=== PATIENT | male | born 1960 | race Caucasian/White ===

== ENCOUNTER 2020-06-17 08:55 | Emergency (ER) | payer OTHER ==
[~2020-06-17] VITALS: Ht 193 cm; Wt 77.1 kg
--- NOTE | 2020-06-17 09:02 | NUR ---
PT AMBULATED TO ER BED 11 WITH WALKER
[2020-06-17 09:04] VITALS: BP 142/86
--- NOTE | 2020-06-17 09:13 | NUR ---
DR FERNÁNDEZ AT BEDSIDE AT THIS TIME
--- NOTE | 2020-06-17 09:26 | NUR ---
59/M BIB SELF. AMB WITH WALKER. C/O LEFFT HIP PAIN S/P FALL X YESTERDAY.MED HX: L HIP REPLACEMENT 3 YEARS AGO. PT DENIES ANY FEVER, CP, SOB, OR COUGH AT THIS TIME; PATIENT STATES PAIN OF 5/10 AT THIS TIME. PATIENT POSITIONED FOR COMFORT; HOB ELEVATED; BEDRAILS UP X1; BED DOWN. ER MD MADE AWARE OF PT STATUS.
--- NOTE | 2020-06-17 09:55 | NUR ---
Patient being evaluated by Dr. Georges at bedside.
[2020-06-17 10:26] VITALS: BP 142/86
== END 2020-06-17 10:26 | disposition home or self-care (01) ==
LOC: MED 08:55
DX: S72.115A Nondisplaced fracture of greater trochanter of left femur, initial encounter for closed fracture (principal); S70.02XA Contusion of left hip, initial encounter; I10 Essential (primary) hypertension; Z98.890 Other specified postprocedural states; W19.XXXA Unspecified fall, initial encounter; Y93.89 Activity, other specified; Y92.89 Other specified places as the place of occurrence of the external cause; Y99.8 Other external cause status
CPT/HCPCS: 73502; 99283

== ENCOUNTER 2022-11-25 09:34 | Emergency (ER) | payer OTHER ==
[~2022-11-25] VITALS: Ht 193 cm; Wt 78.0 kg
[2022-11-25 09:41] VITALS: BP 156/96
--- NOTE | 2022-11-25 09:50 | NUR ---
PT AMB TO BED 1.
[2022-11-25] MEDS ORDERED: VANCOMYCIN 1,000 MG in DEXTROSE 5% 250 ML IV ONE (10:40)
[2022-11-25] MEDS ORDERED: NACL 0.9% 1,000 ML IV ONE (10:40)
[2022-11-25] MEDS ORDERED: PIPERACILLIN/TAZOBACTAM 3.375 GM in DEXTROSE 5% 50 ML IV ONE (10:40)
--- NOTE | 2022-11-25 10:41 | NUR ---
Wound culture dropped off with lab.
[2022-11-25] MEDS ORDERED: PIPERACILLIN/TAZOBACTAM 3.375 GM VIAL IV ONE (10:53)
[2022-11-25] MEDS ORDERED: VANCOMYCIN 1,000 MG VIAL ONE (10:53)
[2022-11-25 11:47] LABS: BASOPHILS % (AUTO) 0.3 % (0.0-2.0); EOSINOPHILS # (AUTO) 0.1 K/uL (0-0.4); EOSINOPHILS % (AUTO) 1.4 % (0.0-4.0); HEMATOCRIT 43.7 % (36-52); HEMOGLOBIN 14.7 g/dL (12.0-18.0); LYMPHOCYTES % (AUTO) 13.8 % (20.5-51.1); MEAN CORPUSCULAR HEMOGLOBIN 31 pg (27-31); MEAN CORPUSCULAR HGB CONC 34 g/dL (33-37); MEAN CORPUSCULAR VOLUME 91.9 fL (80-94); MONOCYTES # (AUTO) 0.8 K/uL (0.8-1.0); MONOCYTES % (AUTO) 11.3 % (1.7-9.3); NEUTROPHILS # (AUTO) 5.2 K/uL (1.8-7.7); NEUTROPHILS % (AUTO) 73.2 % (42.2-75.2); PLATELET COUNT (AUTO) 225 K/uL (140-450); RED BLOOD CELL COUNT(AUTO) 4.75 MIL/uL (4.20-6.10); RED CELL DISTRIBUTION WIDTH 13.2 % (11.6-13.7); WHITE BLOOD COUNT (AUTO) 7.1 K/uL (4.8-10.8)
[2022-11-25 12:04] LABS: ANION GAP 14.8 (8-16); ASPARTATE AMINOTRANSFERASE 23 U/L (15-37); CHLORIDE 99 mmol/L (98-107); CREATININE 0.5 mg/dL (0.6-1.3); GFR ARICAN-AMERICAN 216 mL/min (>90); GLUCOSE 86 mg/dL (74-106); POTASSIUM 3.8 mmol/L (3.5-5.1); SODIUM SERUM 138 mmol/L (136-145); TOTAL BILIRUBIN 1.2 mg/dL (0.0-1.0); UREA NITROGEN, BLOOD 13 mg/dL (7-18)
[2022-11-25] MEDS ORDERED: SULF-59 PO (13:49)
[2022-11-25] MEDS ORDERED: CEPH-588 PO (13:49)
[2022-11-25 14:06] VITALS: BP 150/100
--- NOTE | 2022-11-25 14:06 | NUR ---
Patient discharged with v/s stable. Written and verbal after care instructions given and explained. Patient alert, oriented and verbalized understanding of instructions. Ambulatory with steady gait. All questions addressed prior to discharge. ID band removed. Patient advised to follow up with PMD. Rx of keflex, bactrim ds (sent) given. Patient educated on indication of medication including possible reaction and side effects. Opportunity to ask questions provided and answered.
--- NOTE | 2022-11-25 14:06 | NUR ---
IV removed, catheter intact and site benign. Applied folded 4x4 gauze and tape to stop bleeding.
== END 2022-11-25 14:06 | disposition home or self-care (01) ==
LOC: MED 09:34
DX: M86.9 Osteomyelitis, unspecified (principal); I10 Essential (primary) hypertension; Z79.899 Other long term (current) drug therapy
CPT/HCPCS: 36415; 73590; 80053; 84484; 85025; 87040; 87070; 87075; 93005; 96365; 96368; 99291; J2543; J3370; Q0092; J7030